=== PATIENT | female | born 1930 | race Caucasian/White ===

== ENCOUNTER 2016-03-15 19:57 | Emergency (ER) | payer OTHER ==
[2016-03-15 20:13] VITALS: BP 142/80; PULSE 73; RESP 18; TEMP 97.9; O2SAT 93
--- NOTE | 2016-03-15 20:53 | UCPHY ---
H & P Time Seen by Provider: 03/15/16 20:18 Patient Type: Established HPI/ROS: This patient fell 2 nights ago while walking into their apartment with her . It sounds like a mechanical fall and she has clavicle pain since that time that is mild at baseline but moderate with certain movements associated with ecchymosis and swelling. She is accompanied by her , daughter and granddaughter lis for further evaluation because of the ongoing pain to rule out fracture. ROS: Constitutional: No complaints HEENT: She did not strike her head has no headache. Musculoskeletal: No neck or back pain pulmonary: No shortness of breath or chest pain cardiovascular: No complaints neuro: No numbness or tingling to the affected extremity. 7 point ROS is otherwise negative. Smoking Status: Never smoked Physical Exam: Physical Exam Vital signs are normal. General: Pleasant 85-year-old female appears younger than her stated age. No acute distress HEENT: Atraumatic. Eyes: Pupils equal and react to light. Extraocular motions are intact. Extremities: Atraumatic normal except for left clavicle. That exam is notable for mild swelling neck ecchymosis to the distal clavicle. She has limited range of motion of left shoulder due to this pain. No proximal humerus tenderness or posterior shoulder tenderness. No rib tenderness is appreciated. Lungs: Clear to auscultation bilaterally. No respiratory distress. Cardiac: Brisk capillary refill is intact throughout. Pulses are 2+ and symmetric in the affected extremity. Skin: No rash or pallor. Neuro: Alert with no sensorimotor deficits. Initial differential diagnosis: Clavicle fracture versus contusion versus hematoma Constitutional: Initial Vital Signs Temperature (C) 36.6 C 03/15/16 20:12 Heart Rate 73 03/15/16 20:12 Respiratory Rate 18 03/15/16 20:12 Blood Pressure 142/80 H 03/15/16 20:12 O2 Sat (%) 93 03/15/16 20:12 O2 Delivery Mode Room Air Allergies/Adverse Reactions: No Known Allergies Allergy (Verified 11/18/15 14:00) Home Medications: Medication Instructions Recorded Dementia Med 05/19/15 Drops For Glaucoma 05/19/15 B12/Levomefolate Calcium/B-6 11/18/15 Cephalexin [Keflex] 500 mg PO QID 7 Days 11/18/15 Lexapro 11/18/15 MDM/Departure - MDM Diagnostics: Left shoulder x-ray: Nondisplaced distal clavicle fracture by my interpretation ED Course/Re-evaluation: Patient is placed in a sling by our tech with my supervision. I counseled patient and family regarding clavicle fracture. Discussion: Uncomplicated clavicle fracture without neurovascular compromise or other complicating factors - Depart Disposition: Home, Routine, Self-Care Clinical Impression: Fracture, clavicle Qualifiers: Encounter type: initial encounter Clavicle location: lateral end Fracture type : closed Fracture alignment: nondisplaced Laterality: left Qualifier Code: ( S42.035A) Nondisplaced fracture of lateral end of left clavicle, initial encounter for closed fracture Instructions: Clavicle Fracture (ED) Additional Instructions: Diagnosis: Clavicle fracture Plan: Sling whenever she is up and about Ice 20 minutes at a time few times a day or more until symptoms improve Tylenol for pain control Call Dr. Barakat-orthopedic physician to arrange follow-up appointment for further evaluation for sometime within the next 5-10 days. Referrals: [place],. [Primary Care Provider] - As per Instructions Tonny Barakat MD [Medical Doctor] - As per Instructions - PQRS PQRS Measurement: 134: Depression screening and followup, PRIME MD-PHQ2 (12 years and older) Over the last 2 weeks, how often have you been bothered by any of the following problems? 1. Feeling down, depressed, or hopeless? 2. Little interest or pleasure in doing things? [Patient answered no to both 1 and 2] [Patient answered yes to at least 1, referred to PCP for further evaluation.] [Not done because] [altered mental status] [patient refused] [critically ill]. 130: Documentation of medications. [Reviewed all patient medications, doses, route and frequency.] [Unable to obtain meds due to] [critical illness] [altered mental status] [ patient did not know]. 226: Do you smoke? [Yes, counseled to stop.] [No.] 47: 65 and older: Advanced care planning. Patient designates surrogate decision maker as [parent] [spouse] [ ]. [Patient refused.] [Patient has advanced directive.] 51: 18 years old and older with diagnosis of COPD, spirometry performance. [Spirometry not performed; equipment not available.] [Patient has no history of COPD] 52: 18 years old and older with COPD and symptoms of COPD or FEV1<60% predicted prescribed a B Agonist. [Spirometry not performed; equipment not available.]
--- NOTE | 2016-03-15 21:19 | DX ---
Left Shoulder, Three Views History: Trauma, pain, fall. Findings: Nondisplaced oblique fracture of the distal tip of the left clavicle, with slight comminut ion. Minimal superior subluxation of the distal clavicle. Mild osteoarthritis left acromioclavicula r joint. Left humeral head and neck demonstrate no fracture or dislocation. Impressions 1. Oblique nondisplaced distal left clavicle fracture. 2. No definite left humeral head or neck fracture or dislocation.
== END 2016-03-15 21:02 | disposition home or self-care (01) ==
LOC: CED 19:57
DX: S42.035A Nondisplaced fracture of lateral end of left clavicle, initial encounter for closed fracture (principal); W19.XXXA Unspecified fall, initial encounter
CPT/HCPCS: 73030; G0463; 23500-PO; 99214-PO

== ENCOUNTER 2016-03-22 12:24 | Observation (INO) | payer OTHER ==
[2016-03-22] MEDS ORDERED: NS 500 ML IV ONE (12:47)
--- NOTE | 2016-03-22 12:55 | CPEKG ---
Heart Rate: 75 RR Interval: 800 QRSD Interval: 138 QT Interval: 420 QTC Interval: 470 QRS [place]: 48 T Wave [place]: -17 EKG Severity - ABNORMAL ECG - EKG Impression: Wandering Atrial Pacemaker EKG Impression: RIGHT BUNDLE BRANCH BLOCK Electronically Signed By: Derrek Ling 22-Mar-2016 14:38:13
[2016-03-22] MEDS ORDERED: ASPIRIN 81 MG CHEWABLE TAB PO ONE (13:01)
[2016-03-22 13:05] LABS: % IMMATURE GRANULYOCYTES 0.5 % (0.0-1.1); ABSOLUTE IMMATURE GRANULOCYTES 0.04 10^3/uL (0.00-0.10); ADD DIFF? NO; ADD MORPH? NO; ADD SCAN? NO; ATYPICAL LYMPHOCYTE FLAG 0 (0-99); FRAGMENT RBC FLAG 0 (0-99); HEMATOCRIT 41.7 % (38.0-47.0); HEMOGLOBIN 14.4 g/dL (12.6-16.3); LEFT SHIFT FLG 0 (0-99); LIPEMIA HEMOLYSIS FLAG 90 (0-99); MEAN CELL HEMOGLOBIN 32.2 pg (27.9-34.1); MEAN CELL HEMOGLOBIN CONCENTR. 34.5 g/dL (32.4-36.7); MEAN CELL VOLUME 93.3 fL (81.5-99.8); MEAN PLATELET VOLUME 9.1 fL (8.7-11.7); PLATELET CLUMPS FLAG 10 (0-99); PLATELET COUNT 294 10^3/uL (150-400); RED BLOOD CELL COUNT 4.47 10^6/uL (4.18-5.33); RED CELL DISTRIBUTION WIDTH 12.2 % (11.5-15.2)
[2016-03-22 13:14] LABS: INR 0.85 (0.83-1.16); PROTIME(PATIENT) 11.5 SEC (12.0-15.0)
[2016-03-22 13:15] LABS: APTT 28.1 SEC (23.0-38.0)
--- NOTE | 2016-03-22 13:15 | UCPHY ---
H & P Patient Type: Established Chief Complaint Nursing Narrative: while up in Ortho follow up Apt Pt swaded back as if she was going to pas out- daught caught her before she fell and set her in Wheel chair- Daught thinnks she may have had prior episode with sustaing a FX to clavical 1 wk ago from fall Time Seen by Provider: 03/22/16 12:49 HPI/ROS: This patient complains of lightheaded episodes/presyncope. Her daughter provides most of the history. Her daughter was present yesterday afternoon with the patient abruptly stated that she felt poorly citing lightheadedness. Daughter had her sit down and she slumped into the couch. Today while at a follow-up appointment for clavicle fracture suffered on March 15 she had 3 episodes of lightheadedness that required her to immediately be seeded so that she would fall over. I saw this patient here for her fall that resulted in clavicle fracture on March 15 my impression is the times that it was a mechanical fall although admittedly the patient does not remember the details of the mechanism of the fall. ROS: She reports no fevers or chills. No other constitutional complaints. She reports no headache. No neck or back pain. She denies any chest pain. She has noticed any palpitations. No shortness of breath. She reports no belly pain. No lower extremity pain or swelling. She reports moderate ache to the left clavicle from the recent fracture. She denies any recent skin rashes or other integumentary complaints. No recent endocrine complaints. 10 point ROS is otherwise negative. Source: Patient, Family Exam Limitations: Physical impairment (Patient has some dementia and does not remember many details. Most of the history is by her daughter) - Personal History Current Tetanus Diphtheria and Acellular Pertussis (TDAP): Yes - Medical/Surgical History PMH: Hypertension Recent left clavicle fracture on March 15 No previous cardiac history. Hx Asthma: No Hx Chronic Respiratory Disease: No Hx Diabetes: No Hx Cardiac Disease: No Hx Renal Disease: No Hx Cirrhosis: No Hx Alcoholism: No Hx HIV/AIDS: No Hx Splenectomy or Spleen Trauma: No Other PMH: anxiety, depression/ Dementia - Family History Significant Family History: No pertinent family hx - Social History Smoking Status: Never smoked Alcohol Use: None Drug Use: None Additional Social History: She lives in assisted living with her . - Physical Exam Exam: General Appearance: Pleasant 85-year-old female Alert, no distress. Eyes: Pupils equal and round no pallor or injection. ENT, Mouth: Mucous membranes moist. Neck: No midline tenderness. Supple Back: Nontender Respiratory: Rales at the left base more than the right. Otherwise clear to auscultation bilaterally. Cardiovascular: Regular rate and rhythm. No murmur gallop or rub are appreciated. Gastrointestinal: Abdomen is soft and nontender, no masses, bowel sounds normal. Neurological: Alert with no focal deficits. Skin: Warm and dry, no rashes. Extremities are symmetrical, full range of motion. Psychiatric: Patient is oriented to place. She also knows her name. She is pleasant while here has difficulty with memory. DIFFERENTIAL DIAGNOSIS: After history and physical exam differential diagnosis was considered for presyncope. Rule out cardiac causes. Dysrhythmia, coronary syndrome, metabolic disarray, pneumonia, Constitutional: Initial Vital Signs Heart Rate 76 03/22/16 12:50 Respiratory Rate 18 03/22/16 12:50 Blood Pressure 139/76 H 03/22/16 12:50 O2 Sat (%) 96 03/22/16 12:50 O2 Delivery Mode Room Air Allergies/Adverse Reactions: No Known Allergies Allergy (Verified 11/18/15 14:00) Home Medications: Medication Instructions Recorded Dementia Med 05/19/15 Drops For Glaucoma 05/19/15 B12/Levomefolate Calcium/B-6 11/18/15 Cephalexin [Keflex] 500 mg PO QID 7 Days 11/18/15 Lexapro 11/18/15 Aricept 03/22/16 Aspirin 03/22/16 Atorvastatin Calcium 03/22/16 Betoptic 0.5% 03/22/16 Cephalexin 03/22/16 Colace 100 MG (*) 03/22/16 Coreg 03/22/16 Cyanocobalamin 03/22/16 Fosamax 5mg 03/22/16 Lisinopril 03/22/16 Medical Decision Making - Diagnostics EKG Interpretation: 12 lead EKG performed at 12:53 p.m. shortly after arrival Indication: Presyncope rule out dysrhythmia or coronary syndrome Wandering atrial pacemaker at 75 Intervals: QRS of 130, QTC of 470 [place]: QRS of 40, T of-17 Overall assessment :right bundle branch block it appears the patient has 3 different P-wave morphologies. QRS is March out but P waves 2 not. I suspect wandering atrial pacemaker. Overall assessment: Wandering atrial pacemaker with right bundle branch block. No previous for comparison. Imaging: Chest x-ray: Normal by my interpretation ED Course/Re-evaluation: IV, patient is stable monitor, aspirin p.o., 500 cc normal saline bolus I counseled patient and family regarding treatment plan Discussion: Patient here with presyncopal episodes including a fall for cough for fracture on March 15. I think the patient warrants admission for presyncope for further evaluation. Her initial EKG appears to be consistent with wandering atrial pacemaker by my interpretation although on her monitor she appears to be in sinus rhythm most of the time while here. I spoke with Cassy Valenzuela who accepts this patient for transfer to [facility] for a telemetry admission further evaluation. Review of her labs reveals a normal CBC, troponin, BNP and metabolic studies. - Data Points Laboratory Results: Laboratory Results 03/22/16 12:55 03/22/16 12:55 03/22/16 03/22/16 13:12 12:55 WBC 8.58 10^3/uL (3.80-9.50) RBC 4.47 10^6/uL (4.18-5.33) Hgb 14.4 g/dL (12.6-16.3) Hct 41.7 % (38.0-47.0) MCV 93.3 fL (81.5-99.8) MCH 32.2 pg (27.9-34.1) MCHC 34.5 g/dL (32.4-36.7) RDW 12.2 % (11.5-15.2) Plt Count 294 10^3/uL (150-400) MPV 9.1 fL (8.7-11.7) Neut % (Auto) 71.7 % (39.3-74.2) Lymph % (Auto) 18.4 % (15.0-45.0) Hood % (Auto) 7.9 % (4.5-13.0) Eos % (Auto) 0.9 % (0.6-7.6) Baso % (Auto) 0.6 % (0.3-1.7) Nucleat RBC Rel Count 0.0 % (0.0-0.2) Absolute Neuts (auto) 6.15 10^3/uL (1.70-6.50) Absolute Lymphs (auto) 1.58 10^3/uL (1.00-3.00) Absolute Monos (auto) 0.68 10^3/uL (0.30-0.80) Absolute Eos (auto) 0.08 10^3/uL (0.03-0.40) Absolute Basos (auto) 0.05 10^3/uL (0.02-0.10) Absolute Nucleated RBC 0.00 10^3/uL (0-0.01) Immature Gran % 0.5 % (0.0-1.1) Immature Gran # 0.04 10^3/uL (0.00-0.10) PT 11.5 L SEC (12.0-15.0) INR 0.85 (0.83-1.16) APTT 28.1 SEC (23.0-38.0) Sodium 136 mEq/L (134-144) Potassium 4.0 mEq/L (3.5-5.2) Chloride 99 mEq/L (97-110) Carbon Dioxide 23 mEq/l (22-31) Anion Gap 14 mEq/L (8-16) BUN 19 mg/dL (7-23) Creatinine 1.3 H mg/dL (0.6-1.0) Estimated GFR 39 Glucose 91 mg/dL (70-100) Calcium 10.2 mg/dL (8.5-10.4) Troponin I < 0.012 ng/mL (0-0.034) NT-Pro-B Natriuret Pep 135 pg/mL (0-450) Medications Given: Discontinued Medications Aspirin (Aspirin) 324 mg PO EDNOW ONE Stop: 03/22/16 13:02 Last Admin: 03/22/16 13:40 Dose: 324 mg Sodium Chloride (Ns) 500 mls @ 0 mls/hr IV ONCE ONE PRN Reason: As Directed Stop: 03/22/16 12:48 Last Admin: 03/22/16 13:35 Dose: 500 mls Departure - Departure Disposition: [facility] Clinical Impression: Pre-syncope, Wandering (atrial) pacemaker Condition: Good - PQRS PQRS Measurement: 134: Depression screening and followup, PRIME MD-PHQ2 (12 years and older) Over the last 2 weeks, how often have you been bothered by any of the following problems? 1. Feeling down, depressed, or hopeless? 2. Little interest or pleasure in doing things? Patient answered yes to at least 1, referred to PCP for further evaluation. 130: Documentation of medications. patient did not know 226: Do you smoke? [No.] 47: 65 and older: Advanced care planning. Patient designates surrogate decision maker as daughter 51: 18 years old and older with diagnosis of COPD, spirometry performance. NA 52: 18 years old and older with COPD and symptoms of COPD or FEV1<60% predicted prescribed a B Agonist. NA
[2016-03-22 13:16] LABS: CALCIUM 10.2 mg/dL (8.5-10.4); CARBON DIOXIDE 23 mEq/l (22-31); CHLORIDE 99 mEq/L (97-110); CREATININE 1.3 mg/dL (0.6-1.0); GLOMERULAR FILTRATION RATE 39; GLUCOSE 91 mg/dL (70-100); SODIUM 136 mEq/L (134-144)
[2016-03-22 13:19] LABS: ANION GAP 14 mEq/L (8-16)
[2016-03-22 13:29] LABS: TROPONIN I < 0.012 ng/mL (0-0.034)
--- NOTE | 2016-03-22 13:56 | DX ---
Chest, AP and Lateral History: Rales at left lung base. Findings: Heart size is upper limits of normal. Pulmonary vascularity appears normal. There is an emp hysematous configuration to the chest. No evidence for acute airspace consolidation. No evidence for pleural effusion or pneumothorax. Mild degenerative change is seen in the cervical and thoracic spine . Nondisplaced fracture is seen in the distal left clavicle as seen on x-ray of the left shoulder las t week. Impression: No evidence for acute cardiopulmonary abnormality.
[2016-03-22] MEDS ORDERED: ACETAMINOPHEN 325 MG TAB PO PRN (16:30)
[2016-03-22] MEDS ORDERED: ONDANSETRON 4 MG/2 ML VIAL IVP PRN (16:30)
[2016-03-22] MEDS ORDERED: NS 1,000 ML IV SCH (16:30)
--- NOTE | 2016-03-22 17:17 | GHP ---
[f rep st] HISTORY AND PHYSICAL DATE OF ADMISSION: 03/22/2016 CHIEF COMPLAINT: Presyncope. HISTORY: The patient is an 85-year-old female who fell on March 13 while walking into her apartm ent with her and broke her clavicle. [place] [facility] [place] and [place] e home. I believe history is limited from the patient directly due to dementia. The daughter has be en with her for the last couple of days and has noticed recurrent presyncopal symptoms. She had 1 ep isode yesterday where she had acute onset of severe lightheadedness and had to sit down, although she never fully passed out. Today, they were at the orthopedic surgery office and she had multiple recu rrent episodes in the waiting room where she suddenly feels very lightheaded and has to sit down, slu mping into a chair. Again, no true syncope was ever witnessed. Is now bringing into question whether or not she may have had similar symptoms prior to her fall resu lting in a clavicle fracture. Again, patient's dementia limits her ability to express this. After s he broke her clavicle, she was in severe pain and lied in a ball for a couple of days, although the p ain from the clavicle fracture is now improved. She was taking Tylenol for it and has not been takin g NSAIDs. She has had some decreased p.o. intake. PAST MEDICAL HISTORY: 1. Dementia. 2. Anxiety and depression. 3. Hyperlipidemia. PAST SURGICAL HISTORY: Hysterectomy. MEDICATIONS: Please see computer record for full detailed list. ALLERGIES: No known drug allergies. SOCIAL HISTORY: No smoking. Moderate alcohol, 1-2 beverages per day. She lives [facility] with her and a nurse comes in twice a day to administer medications. REVIEW OF SYSTEMS: Complete review of systems obtained. Review of systems is negative on constituti onal, HEENT, GI, pulmonary, cardiovascular, , hematology, skin, musculoskeletal, endocrine, psych, except for positives and negatives as noted in HPI. FAMILY HISTORY: Reviewed. Noncontributory to presenting complaint. PHYSICAL EXAMINATION: GENERAL: Well-developed, well-nourished female, in no acute distress. VITAL SIGNS: Temperature is 37.2, pulse of 60, blood pressure 129/66, saturating 96% on room air. HEENT: Eyes: Normal conjunctivae. Pupils equal and react to light. ENT: Normal ears and nose. Hearing intact. Normal lips and teeth. Oropharynx: Moist. NECK: Trachea midline. No thyromegaly. CHEST : Normal respiratory effort. LUNGS: Clear to auscultation bilaterally. CARDIOVASCULAR: Regular ra te and rhythm. No murmur. No lower extremity edema. ABDOMEN: Soft, nontender. No hepatosplenomeg bekah. SKIN: Warm, dry, intact. No rash. MUSCULOSKELETAL: No cyanosis or clubbing. Strength 5/5 u pper and lower extremities. NEUROLOGIC: Cranial nerves intact. Normal sensation, light touch. PSY CH: Alert and oriented, but poor judgment and insight. Poor memory. She is pleasant and cooperativ e. LABS: White count 8.58, hematocrit 41.7, platelets 294. Sodium 136, potassium 4.0, chloride 99, bic arb 23, BUN 19, creatinine 1.3. This is up from a recent baseline 2 weeks ago of 1.0, glucose 91, tr oponin is negative. BNP is 135. DIAGNOSTIC DATA: EKG viewed by me. My personal interpretation is sinus rhythm with a right bundle b ranch block. Chest x-ray is negative. ASSESSMENT/PLAN: Problems: 1. Presyncope. I suspect orthostasis due to dehydration. Her creatinine is slightly bumped above b aseline which would be consistent with this. Will check orthostatic vital signs. Will watch her on telemetry to look for any signs of arrhythmia or heart block and check an echocardiogram. 2. Acute renal failure. Will hydrate with IV fluids and hold her ARB. 3. Clavicle fracture. We will continue her in a sling and get PT/OT consultations. 4. Dementia. Continue Aricept. CODE STATUS: Full. ADMISSION STATUS: Will admit under observation, as she may be able go home tomorrow if her evaluatio n is unremarkable. DVT PROPHYLAXIS: She is high risk. Will place her on subcu Lovenox. /[id number]/MODL
[2016-03-22] MEDS ORDERED: DONEPEZIL HCL 5 MG TAB PO SCH (18:00)
[2016-03-22] MEDS ORDERED: NON-FORMULARY NEW DRUG (Donepezil Hcl [Aricept] 10 MG) PO SCH (18:00)
[2016-03-22] MEDS: BETAXOLOL 0.25% EACHEYE SCH (18:20)
[2016-03-22 18:23] LABS: COLOR YELLOW; LEUKOCYTE ESTERASE,URINE 3+ (NEGATIVE); NITRITE,URINE NEGATIVE (NEGATIVE)
[2016-03-22 18:28] LABS: MUCUS 1+ /lpf (NONE-1+); WBC,URINE 50-182 /hpf (0-3)
[2016-03-22] MEDS ORDERED: HALOPERIDOL LACT 5 MG/ML INJ IVP PRN (20:28)
[2016-03-22] MEDS ORDERED: LORazepam 2 MG/ML INJ IVP ONE (20:28)
[2016-03-22] MEDS ORDERED: HALOPERIDOL LACT 5 MG/ML INJ ONE (20:32)
[2016-03-22] MEDS ORDERED: BRIMONIDINE 0.1% 5 ML OPHT.BTL EACHEYE SCH (21:00)
[2016-03-22] MEDS: ALPRAZolam 0.25 MG TAB PO SCH (22:25)
[2016-03-23 05:14] LABS: ANION GAP 11 mEq/L (8-16); CALCIUM 9.3 mg/dL (8.5-10.4); CARBON DIOXIDE 24 mEq/l (22-31); CHLORIDE 106 mEq/L (97-110); CREATININE 1.1 mg/dL (0.6-1.0); GLOMERULAR FILTRATION RATE 47; GLUCOSE 86 mg/dL (70-100); SODIUM 141 mEq/L (134-144)
[2016-03-23 05:22] LABS: TROPONIN I < 0.012 ng/mL (0-0.034)
--- NOTE | 2016-03-23 08:34 | CPEKG ---
Heart Rate: 58 RR Interval: 1034 P-R Interval: 264 QRSD Interval: 134 QT Interval: 460 QTC Interval: 452 P [place]: 59 QRS [place]: 43 T Wave [place]: -31 EKG Severity - ABNORMAL ECG - EKG Impression: SINUS RHYTHM EKG Impression: FIRST DEGREE AV BLOCK EKG Impression: RIGHT BUNDLE BRANCH BLOCK Electronically Signed By: Lizzie Fuller 24-Mar-2016 16:46:17
[2016-03-23] MEDS ORDERED: Propylene Glycol/Peg 400/Pf [Systane 0.3-0.4% Eye Drops] 1 EACH OP SCH (09:00)
[2016-03-23] MEDS ORDERED: VILAZODONE HYDROCHLORIDE 10 MG PO SCH (09:00)
[2016-03-23] MEDS ORDERED: ATORVASTATIN CALCIUM 40 MG TAB PO SCH (09:00)
[2016-03-23] MEDS ORDERED: TEARS/DEXTRAN 70/HYPROMELLOSE 15 ML OPHT.BTL OP SCH (09:00)
[2016-03-23] MEDS ORDERED: DOCUSATE SODIUM 100 MG CAP PO SCH (09:00)
[2016-03-23] MEDS ORDERED: ENOXAPARIN 40 MG/0.4 ML SYR SC SCH (09:00)
[2016-03-23] MEDS: ALPRAZolam 0.25 MG TAB PO SCH (10:54)
--- NOTE | 2016-03-23 11:25 | ECHO ---
[id number] + + [address] : : [place] [address] : : [phone] + + Adult Echocardiographic Report + + :Name: FLORES GARCIAniralisherman Date: 03/23/2016 07:54 AM : : Hospital Admission Number: [id number] Loc ation: 201: :: 1930 Gender: Female Height: 62 in : :Age: 85 yrs Race: WH Weight: 135 lb : :Reason For Study: Syncope : : BSA: 1.6 me ters2 : + + MMode/2D Measurements & Calculations IVSd: 0.79 cm LVIDd: 3.9 cm FS: 43.7 % Ao root diam: 3.4 cm LVPWd: 0.87 cm LVIDs: 2.2 cm EDV(Teich): 67.0 ml LA dimension: 2.1 cm ESV(Teich): 16.4 ml EF(Teich): 75.5 % Normal Measurement Values: + + :LVIDd (3.5-5.7cm) IVSd (0.6-1.1cm) LVPWd (0.6-1.1cm) Aortic Root (2.0-3.7cm)Left Atrium (1.5-4.0cm): :LV Vol(d) (76-115ml) LV Vol(s) (29-48ml) Ejec Fraction (50-65%)PV Dante (0.6- 1.2m/s) TV Dante (0.4-1.0m/s) : :MV E Dante (0.8-1.0m/s)MV A Dante (0.3-1.0m/s)LVOT Dante (0.7-1.2m/s) Asc Ao Dante ( 0.9-1.8m/s) : + + Doppler Measurements & Calculations MV E max dante: 51.8 cm/sec AI max dante: 85.5 cm/sec MV A max dante: 80.5 cm/sec AI max P.9 mmHg MV E/A: 0.64 Left Ventricle The left ventricle is normal in size. There is normal left ventricular wall thickness. Left ventricular systolic function is normal. Ejection Fraction = 65-70%. The left ventricular ejection fraction is calculated at 75.5 %. There is Doppler evidence for diastolic dysfunction. No regional wall motion abnormalities noted. Right Ventricle The right ventricle is normal in size and function. Atria The left atrial size is normal. Right atrial size is normal. Mitral Valve The mitral valve is normal in structure and function. There is mild mitral regurgitation. Tricuspid Valve Normal tricuspid valve. Aortic Valve The aortic valve opens well. The aortic valve is trileaflet. There is no aortic stenosis. There is no aortic insufficiency. Pulmonic Valve The pulmonic valve is not well visualized. There is no pulmonic valvular regurgitation. Great Vessels The aortic root is normal size. Pericardium/Pleural There is no pericardial effusion. There is a fat pad seen. Conclusion A complete two-dimensional transthoracic echocardiogram was performed (2D, M-mode, Doppler and color flow Doppler). The patient has a dilated IVC. Limited views with L fractured clavicle. (1) Left ventricular systolic ejection fraction was normal (65-70%) - normal wall motion (2) No left ventricular hypertrophy (3) Diastolic dysfunction was present (4) Normal right ventriuclar size and function (5) Normal atrial dimenisons (6) Mild mitral regurgitation (7) Trileaflet aortic valve without sclerosis or insufficiency (8) Grossly normal tricuspid valve (9) Poor visualization of the pulmonic valve (10) No comparison echocardiograms Final Reading Physician: Gibran Garcia signed on 03/23/2016 11:23 AM Ordering Physician: Lori Perez Performed By: Xochilt Caceres RDCS
[2016-03-23 11:42] VITALS: BP 153/76; PULSE 64; RESP 19; TEMP 97.9; O2SAT 97
--- NOTE | 2016-03-23 12:33 | PDIAF ---
- Diagnosis Diagnosis: pre-syncope Code Status: Do Not Resuscitate - Medication Management Discharge Medications: Medications to Continue on Transfer ALPRAZolam [Xanax 0.25 MG (*)] 0.125 mg PO BID 03/22/16 [Last Taken 03/21/16] Albuterol [Proventil Inhaler HFA (*)] 2 puffs IH Q4 PRN 03/22/16 [Last Taken Unknown] Atorvastatin Calcium [Lipitor 40 mg (*)] 40 mg PO DAILY 03/22/16 [Last Taken 04/05] Betaxolol 0.25% [Betoptic S 0.25%] 1 drops EACHEYE BID 03/22/16 [Last Taken 04/05] Brimonidine 0.1% [ALPHAGAN P 0.1% (*)] 1 drops EACHEYE BID 03/22/16 [Last Taken 03/21/16] Cyanocobalamin [Vitamin B12 1000MCG/ML (*)] 1,000 mcg IM Q30D 03/22/16 [Last Taken Unknown] Docusate Sodium [Colace 100 MG (*)] 100 - 200 mg PO DAILY 03/22/16 [Last Taken 03/21/16] Donepezil HCl [Aricept] 10 mg PO DAILY@18 03/22/16 [Last Taken 03/21/16] Losartan Potassium [Cozaar 25 mg (*)] 25 mg PO DAILY 03/22/16 [Last Taken ] Multivitamins [Multivitamin (*)] 1 each PO DAILY 03/22/16 [Last Taken 03/21/16] [place]-3 Fatty Acids [Fish Oil 1000 mg (*)] 1,200 mg PO HS 03/22/16 [Last Taken 03/21/16] Propylene Glycol/Peg 400/Pf [Systane 0.3-0.4% Eye Drops] 1 each OP DAILY [Last Taken 03/21/16] Vilazodone Hydrochloride [Viibryd] 10 mg PO DAILY 03/22/16 [Last Taken 03/21/16] Discharge Medications: Refer to the Discharge Home Medication list for PRN reason. - Orders Services needed: Home Care, Registered Nurse, Physical Therapy Home Care Face to Face: I certify that this patient was under my care and that I had the required [id number] encounter meeting the encounter requirements on the discharge day. My findings support the fact that the patient is homebound as defined in CMS Chapter 7 Medicare Benefits Manual 30.1.1, The condition of the patient is such that there exists a normal inability to leave home and consequently, leaving home would require a considerable and taxing effort. Diet Recommendation: no restrictions on diet Diet Texture: Regular Texture Diet - Follow Up Care Current Providers and Referrals: Fior Holliday MD [Primary Care Provider] - As per Instructions
[2016-03-23] MEDS ORDERED: BRIMONIDINE 0.15% 5 ML OPHT.BTL EACHEYE SCH (12:45)
[2016-03-23] MEDS: BETAXOLOL 0.25% EACHEYE SCH (14:34)
--- NOTE | 2016-03-23 16:30 | GDS ---
[f rep st] DISCHARGE SUMMARY DISCHARGE DIAGNOSES: Include: 1. Presyncope secondary to volume depletion. 2. Dementia. 3. Hyperlipidemia. 4. Anxiety. 5. Depression. HISTORY OF PRESENT ILLNESS: This is an 85-year-old female who presented on 03/22/2016 with presyncop al symptoms. For details of patient's initial presentation, please see the history and physical date d 03/22/2016. CONSULTATIVE SERVICES: None. PROCEDURES: On 03/22/2016, the patient had a transthoracic echocardiogram that showed normal LV size and function with Doppler evidence of diastolic dysfunction. No segmental wall motion abnormalities . HOSPITAL COURSE: 1. Patient presented and was placed on telemetry, ruled out with serial troponins and EKGs. Found t o have mild elevation in her creatinine and vital signs, consistent with dehydration and received IV fluid resuscitation. Had improvement in her renal function to a creatinine of 1.1. On the day of di sposition, she no longer felt dizzy, had normal vital signs, and a normal transthoracic echocardiogra m. We have discussed encouraging oral intake by her care providers at home. Have additionally provi ded a wheeled front walker for the patient to use at home as well. 2. Acute kidney injury secondary to hypovolemia. This improved with fluid resuscitation. The patie nt is not on medications at home that need to be stopped with her creatinine now at 1.1. FOLLOWUP APPOINTMENTS: Include with her primary care provider in 1-2 weeks' time for post discharge followup and a vital sign check. Again, we have asked the care providers at home that visit twice da jose j to encourage fluid intake. MEDICATIONS AT THE TIME OF DISPOSITION: Please reference medication reconciliation printed on 2016. PENDING STUDIES: At the time of this dictation include a urine culture, which is preliminary no grow th to date. I spent greater than 30 minutes in the planning and coordination of this discharge. /[id number]/MODL
== END 2016-03-23 15:30 | disposition home health service (06) ==
LOC: CED 12:24 → CEDHOLD 13:17 → INTOOBSV 13:17 → F2W 15:18
PROVIDERS: ADMIT Internal Medicine; ATTEND Internal Medicine
PROC: B246YZZ Ultrasonography of Right and Left Heart using Other Contrast (ICD-10-PCS; principal; 2016-03-22)
DX: R55 Syncope and collapse (principal); E86.9 Volume depletion, unspecified; N17.9 Acute kidney failure, unspecified; F03.90 Unspecified dementia, unspecified severity, without behavioral disturbance, psychotic disturbance, mood disturbance, and anxiety; I49.8 Other specified cardiac arrhythmias; I45.10 Unspecified right bundle-branch block; E78.5 Hyperlipidemia, unspecified; F32.9 Major depressive disorder, single episode, unspecified; F41.9 Anxiety disorder, unspecified; I10 Essential (primary) hypertension; Z66 Do not resuscitate
CPT/HCPCS: 71020; 93005; 93306; 96360; 97161; 97165; G0378; G0463; G8978; G8979; G8987; G8988; J1650; 80048-PO; 83880-PO; 84484-PO; 85025-PO; 85610-PO; 85730-PO

== ENCOUNTER 2018-03-31 13:40 | Emergency (ER) | payer OTHER ==
[2018-03-31] MEDS ORDERED: NS 500 ML IV ONE (13:53)
[2018-03-31 14:25] LABS: PLATELET COUNT 302 10^3/uL (150-400)
[2018-03-31 14:45] LABS: INR 0.88 (0.83-1.16); PROTIME(PATIENT) 12.2 SEC (12.0-15.0)
--- NOTE | 2018-03-31 15:06 | EDPHY ---
H & P Smoking Status: Never smoked Time Seen by Provider: 03/31/18 13:53 HPI/ROS: HPI Confusion, not moving well, generalized weakness. 87-year-old female by ambulance from [facility]. She is here with her daughter and with her . The daughter reports that since Friday she has noticed a decline in her function. The patient has been much less active. She has not been eating. There is a report of her having difficulty using her right arm. Both she and her have a home health care nurse that checks on them daily. Through this home health care service she had an evaluation by a physician family practice physician assistant 2 days ago. At that time she was not thought to have had a stroke. No cardiac etiology was suspected. Her daughter brings her into the emergency department today because of this continued decline in basic function and lack of appetite. The daughter also reports that she usually ambulates with some assistance. The daughter reports that today she will take a couple of steps and then just stop moving and the need some encouragement take a couple more steps and then stop moving. ROS: Constitutional: No fever, no chills. As above. Eyes: No discharge. No changes in vision. ENT: No sore throat. No nasal congestion or rhinorrhea. Respiratory: No cough. No shortness of breath. Cardiac: No chest pain, no palpitations. Gastrointestinal: No abdominal pain, no vomiting, no diarrhea. Genitourinary: No hematuria. No dysuria or increased frequency with urination. Musculoskeletal: No back pain. No neck pain. No myalgias or arthralgias. Skin: No rashes. Neurological: No headache. No focal weakness or altered sensation. Past medical history: Anxiety, depression, dementia with short-term memory loss , hysterectomy, hearing loss Social history: Here with her and daughter. As above. Nonsmoker. No alcohol. Physical Exam: General Appearance: Alert, pleasant, no distress. This patient is responding to questions appropriately and in full sentences. This patient appears well- hydrated and well-nourished. Eyes: Pupils equal and round no pallor or injection. No lid edema, erythema or injection. Respiratory: There are no retractions, lungs are clear to auscultation with good air movement bilaterally. Cardiovascular: Regular rate and rhythm. No murmur appreciated. Gastrointestinal: Abdomen is soft and nontender, no masses, bowel sounds normal. No focal tenderness at Burney's point. No Joyner sign. Neurological: Motor sensory function is grossly intact. Cranial nerves are normal. Gait is normal. Skin: Warm and dry, no rashes. Musculoskeletal: Neck is supple and nontender. Extremities are symmetrical. All joints range without pain or impingement. Psychiatric: No agitation. No depression. Database: EKG time is 2:06 p.m. EKG shows a sinus rhythm with ventricular rate of 82. Atypical right bundle branch block verses nonspecific intraventricular conduction delay note. Borderline 1st degree AV block noted. The QT intervals are within normal limits. There are no ST-T wave changes indicative of ischemic or injury pattern. No evidence of right heart strain. Interpreted by me. Imaging: Procedures: Emergency department course: Triage vital signs reviewed and are normal. She is afebrile. IV was placed. She was started on 500 cc of IV normal saline to be given over the next hour for dehydration. EKG obtained and reviewed by myself. The patient's baseline creatinine is 1.2-1.3. Creatinine today is 1.6. Her BUN is also elevated. I feel this is likely prerenal secondary to dehydration. 3:00 p.m., the patient is currently being hydrated with IV normal saline. I did discuss placement to a higher level of care such as a snf with her daughter. At this time the daughter does not want to do this and the patient does not want to be admitted. Urinalysis and TSH are currently pending. Care turned over to Dr. Aden. Expected disposition is possible admission for failure to thrive, IV hydration and snf placement versus discharge home with daughter, follow-up with PCP and home healthcare team. Differential Diagnosis: The differential diagnosis on this patient includes but is not limited to dehydration, urinary tract infection, failure to thrive, dehydration, renal insufficiency. This represents a partial list of diagnoses considered. These considerations are based on history, physical exam, past history, reassessment and diagnostic testing. (Leah Moise) Constitutional: Initial Vital Signs Temperature (C) 36.5 C 03/31/18 13:57 Heart Rate 82 03/31/18 13:57 Respiratory Rate 16 03/31/18 13:57 Blood Pressure 125/59 H 03/31/18 13:57 O2 Sat (%) 97 03/31/18 13:57 O2 Delivery Mode Room Air Allergies/Adverse Reactions: No Known Allergies Allergy (Verified 03/31/18 13:58) Home Medications: Medication Instructions Recorded ALPRAZolam [Xanax 0.25 MG (*)] 0.125 mg PO BID 03/22/16 Albuterol [Proventil Inhaler HFA 2 puffs IH Q4 PRN 03/22/16 (*)] Atorvastatin Calcium [Lipitor 40 40 mg PO DAILY 03/22/16 mg (*)] Betaxolol 0.25% [Betoptic S 0.25%] 1 drops EACHEYE BID 03/22/16 Cyanocobalamin [Vitamin B12 1,000 mcg IM Q30D 03/22/16 1000MCG/ML (*)] Docusate Sodium [Colace 100 MG (*)] 100 - 200 mg PO DAILY 03/22/16 Donepezil HCl [Aricept] 10 mg PO DAILY@18 03/22/16 Losartan Potassium [Cozaar 25 mg 25 mg PO DAILY 03/22/16 (*)] Multivitamins [Multivitamin (*)] 1 each PO DAILY 03/22/16 Greenwood-3 Fatty Acids [Fish Oil 1000 1,200 mg PO HS 03/22/16 mg (*)] Propylene Glycol/Peg 400/Pf 1 each OP DAILY 03/22/16 [Systane 0.3-0.4% Eye Drops] Vilazodone HCl [Viibryd] 10 mg PO DAILY 03/22/16 Brimonidine 0.15% [ALPHAGAN P 1 drops EACHEYE BID 03/23/16 0.15% (RX)] levOFLOXACIN [levAQUIN (*)] 500 mg PO DAILY #3 tab 03/31/18 Medical Decision Making ED Course/Re-evaluation: 1500: The patient is signed out to me at change of shift by Dr. Moise. I reviewed Dr. Moise note the patient's care thus far. Per his sign out, the patient is awaiting urine and troponin. He feels the patient's family will likely want to take her home. I will discuss this with them once again wants to have the urine results. I personally evaluated the patient. She is in no distress. She has no specific complaints at this time. GENERAL: Well-appearing, in no acute distress, alert. HEENT: Eyes normal to inspection, normal pharynx, no signs of dehydration. NECK: Normal, supple. RESPIRATORY: Clear to auscultation bilaterally, no rales, rhonchi or wheezing. CVS: Regular rate and rhythm, no rubs, murmurs, or gallops. ABDOMEN: Soft, nontender, nondistended, no organomegaly. BACK: Normal to inspection, no CVA tenderness. SKIN: Normal color, no rash, warm, dry. No pallor. EXTREMITIES: No pedal edema, no calf tenderness, no Homans sign or cords, no joint swelling. She has a few abrasions on her shins. NEURO/PSYCH: Alert, normal mood and affect, normal motor sensory exam. No obvious cranial nerve deficit. 16 50: The patient's daughter requested common the room. Patient had no new complaints. She requested discharge. I discussed the differential diagnosis and our concerns. I explained the reason for wanting a urine study as this could cause her symptoms. I discussed treatment and disposition options with the patient and her family. Patient does not want to be admitted. She requested discharge at this time. She will be given a 3 day course of antibiotics. She requests a 1 dose per day antibiotic. She is given Levaquin in the emergency department and will be discharged with a prescription for Levaquin. (Mckenzie Saldivar) - Data Points Laboratory Results: Laboratory Results 03/31/18 13:52 03/31/18 13:52 Medications Given: Discontinued Medications Sodium Chloride (Ns) 500 mls @ 0 mls/hr IV EDNOW ONE; Wide Open PRN Reason: Protocol Stop: 03/31/18 13:54 Last Admin: 03/31/18 14:56 Dose: 500 mls Levofloxacin (Levaquin) 500 mg PO EDNOW ONE PRN Reason: Protocol Stop: 03/31/18 16:59 Last Admin: 03/31/18 17:16 Dose: 500 mg Point of Care Test Results: Chemistry 03/31/18 15:12 POC Troponin I 0.00 ng/mL ng/mL (0.00-0.08) Departure - Departure Disposition: Home, Routine, Self-Care Clinical Impression: Failure to thrive in adult, Renal insufficiency, Dehydration Condition: Good Instructions: Weakness (ED) Additional Instructions: Take your entire course of antibiotics as prescribed. You been given the 1st dose in the emergency department. Return with increasing weakness, fever, abdominal pain, shortness of breath or any other concerns. Referrals: Fior Holliday MD [Primary Care Provider] - 5-7 days, call for appt. Prescriptions: levOFLOXACIN [levAQUIN (*)] 500 mg PO DAILY #3 tab
[2018-03-31 16:09] VITALS: BP 106/66
--- NOTE | 2018-04-01 23:23 | CPEKG ---
Test Reason : OPEN Blood Pressure : / mmHG Vent. Rate : 082 BPM Atrial Rate : 081 BPM P-R Int : 243 ms QRS Dur : 135 ms QT Int : 420 ms P-R-T Axes : 056 052 -53 degrees QTc Int : 491 ms Sinus rhythm Prolonged WI interval Probable left atrial enlargement IVCD, consider atypical RBBB Anteroseptal infarct, age indeterminate Confirmed by Leah Moise ([id number]) on 04/01/2018 11:22:35 PM Referred By: Leah Moise Confirmed By:Leah Moise
== END 2018-03-31 17:33 | disposition home or self-care (01) ==
LOC: EDUNIT#
DX: R62.7 Adult failure to thrive (principal); N28.9 Disorder of kidney and ureter, unspecified; E86.9 Volume depletion, unspecified; F03.90 Unspecified dementia, unspecified severity, without behavioral disturbance, psychotic disturbance, mood disturbance, and anxiety
CPT/HCPCS: 84484-ER